=== PATIENT | female | born 1960 | race African-American/Black ===

== ENCOUNTER 2018-07-22 10:03 | Emergency (ER) | payer BC ==
[2018-07-22] MEDS ORDERED: ONDANSETRON 4 MG/2 ML VIAL ONE (11:25)
[2018-07-22] MEDS ORDERED: NA CHLORIDE 0.9% 1,000 ML ONE (11:25)
[2018-07-22 11:30] LABS: Absolute Lymphocytes (CBC) 0.7 K/uL (0.7-4.9); Absolute Monocytes 0.2 K/uL (0.1-1.3); Basophils % 0.3 % (0-1.3); Eosinophils % 0.7 % (0-4.4); Hematocrit 44.3 % (36.0-45.0); Lymphocytes % 10.6 % (15.3-44.8); MPV 7.5 fL (7.6-11.3); Monocytes % 2.8 % (3.3-12.3); RBC Red Blood Cell Count 5.07 M/uL (3.86-4.86)
[2018-07-22 11:58] LABS: ALT/SGPT 30 U/L (12-78); AST/SGOT 23 U/L (15-37); Albumin 3.8 g/dL (3.4-5.0); Alkaline Phosphatase 52 U/L (45-117); BUN Blood Urea Nitrogen 15 mg/dL (7-18); Bicarbonate 28 mmol/L (21-32); Bilirubin Direct 0.2 mg/dL (0-0.2); Bilirubin Total 0.8 mg/dL (0.2-1.0); Glucose Level 116 mg/dL (74-106); Lipase 121 U/L (73-393); Potassium 4.1 mmol/L (3.5-5.1); Protein, Total 7.3 g/dL (6.4-8.2); Sodium Level 144 mmol/L (136-145)
[2018-07-22 11:59] LABS: Urine Blood TRACE (NEG); Urine Glucose NEGATIVE (NEG); Urine Protein 1+ (NEG)
[2018-07-22 12:28] LABS: Blood Morphology Comment NOT SEEN (NOT SEEN); Platelet Estimate ADEQ; Urine White Blood Cell Casts OK
--- NOTE | 2018-07-22 12:51 | ER ---
Nurse's Notes [facility] Name: Karen Tsang Age: 58 yrs Sex: Female : 1960 Arrival Date: 07/22/2018 Time: 10:05 Bed 6 Private MD: Diagnosis: Generalized abdominal pain;Diarrhea, unspecified;Vomiting Presentation: 07/22 10:37 Presenting complaint: Patient states: upper abd pain since this morning, also vomited iw yellow bile. Transition of care: patient was not received from another setting of care. Onset of symptoms was July 22, 2018. Risk Assessment: Do you want to hurt yourself or someone else? Patient reports no desire to harm self or others. Initial Sepsis Screen: Does the patient meet any 2 criteria? No. Patient's initial sepsis screen is negative. Does the patient have a suspected source of infection? No. Patient's initial sepsis screen is negative. Care prior to arrival: None. 10:37 Method Of Arrival: Ambulatory iw 10:37 Acuity: WILFREDO 3 iw Historical: - Allergies: 10:38 No Known Allergies; iw - Home Meds: 10:38 None [Active]; iw - PMHx: 10:38 None; iw - PSHx: 10:38 Hysterectomy; Tubal ligation; Hernia repair; Febroid Removal; iw - Immunization history:: Adult Immunizations. - Ebola Screening: : Patient negative for fever greater than or equal to 101.5 degrees Fahrenheit, and additional compatible Ebola Virus Disease symptoms Patient denies exposure to infectious person Patient denies travel to an Ebola-affected area in the 21 days before illness onset No symptoms or risks identified at this time. - Social history:: Smoking status: . Screenin:15 Abuse screen: Denies threats or abuse. Denies injuries from another. Nutritional aj1 screening: No deficits noted. Tuberculosis screening: No symptoms or risk factors identified. 13:32 Fall Risk None identified. tw2 Assessment: 11:15 General: Appears in no apparent distress. comfortable, Behavior is calm, cooperative, aj1 appropriate for age. Pain: Complains of pain in right upper quadrant and left upper quadrant Pain does not radiate. Neuro: Level of Consciousness is awake, alert, obeys commands. Cardiovascular: Patient's skin is warm and dry. Respiratory: Airway is patent Respiratory effort is even, unlabored, Respiratory pattern is regular, symmetrical. GI: Abdomen is non-distended, Bowel sounds present X 4 quads. Abd is soft and non tender X 4 quads. Reports upper abdominal pain, nausea, vomiting. : No signs and/or symptoms were reported regarding the genitourinary system. EENT: No signs and/or symptoms were reported regarding the EENT system. Derm: No signs and/or symptoms reported regarding the dermatologic system. Skin is pink, warm \T\ dry. normal. Musculoskeletal: No signs and/or symptoms reported regarding the musculoskeletal system. Circulation, motion, and sensation intact. 12:15 Reassessment: Patient appears in no apparent distress at this time. No changes from aj1 previously documented assessment. Patient and/or family updated on plan of care and expected duration. Pain level reassessed. Patient is alert, oriented x 3, equal unlabored respirations, skin warm/dry/pink. 13:33 Reassessment: Patient appears in no apparent distress at this time. No changes from tw2 previously documented assessment. Patient and/or family updated on plan of care and expected duration. Pain level reassessed. Patient is alert, oriented x 3, equal unlabored respirations, skin warm/dry/pink. Vital Signs: 10:50 BP 123 / 83; Pulse 76; Resp 19; Temp 98.8(O); Pulse Ox 99% on R/A; jb1 12:15 BP 119 / 62; Pulse 76; Resp 21; Pulse Ox 97% on R/A; aj1 ED Course: 10:05 Patient arrived in ED. rg4 10:34 [facility] jm 10:34 Luisito Acevedo MD is Attending Physician. [facility] 10:37 Triage completed. iw 10:42 Laci Milligan, BRIDGER is Primary Nurse. sg 10:45 Arm band placed on. sg 11:00 Initial lab(s) drawn, by ED staff. Inserted saline lock: 22 gauge in left antecubital jb1 area, using aseptic technique. Blood collected. 11:05 Missed attempt(s): 20 gauge in right antecubital area. kj1 11:15 Patient has correct armband on for positive identification. Bed in low position. Call aj1 light in reach. Side rails up X 1. bus driver/monitor on. Pulse ox on. NIBP on. 11:15 No provider procedures requiring assistance completed. aj1 13:32 IV discontinued, intact, bleeding controlled, No redness/swelling at site. Pressure tw2 dressing applied. 13:36 Sveta Tsang, RN is Primary Nurse. iw Administered Medications: :26 Drug: NS 0.9% 1000 ml Route: IV; Rate: 1000 ml; Site: left antecubital; aj1 13:25 Follow up: Response: No adverse reaction; IV Status: Completed infusion; IV Intake: iw 1000ml : Drug: Zofran 4 mg Route: IVP; Site: left antecubital; aj1 13:20 Follow up: Response: No adverse reaction; Nausea is decreased iw Intake: 13:25 IV: 1000ml; Total: 1000ml. iw Outcome: 12:50 Discharge ordered by . helen 13:32 Discharged to home ambulatory. tw2 13:32 Condition: stable 13:32 Discharge instructions given to patient, Instructed on discharge instructions, follow up and referral plans. medication usage, Demonstrated understanding of instructions, follow-up care, medications, Prescriptions given X 1. 13:33 Patient left the ED. tw2 13:36 Patient left the ED. iw Signatures: Ronal Monsalve jb1 Sveta Tsang, RN RN aj1 Laci Milligan, RN RN Gene Mccallum PA PA jmm Williams, Irene, Alisson Guzman RN RN RN tw2 Tawana Ferguson4 Vivian Hernandez kj1
--- NOTE | 2018-07-22 12:51 | EDPHYS ---
Physician Documentation [facility] Name: Karen Tsang Age: 58 yrs Sex: Female : 1960 Arrival Date: 07/22/2018 Time: 10:05 Bed 6 Private MD: ED Physician Luisito Acevedo HPI: 07/22 10:35 This 58 yrs old Black Female presents to ER via Ambulatory with complaints of Abdominal jmm Pain. 10:35 The patient presents with abdominal pain in the epigastric area. Onset: The jmm symptoms/episode began/occurred this morning. Associated signs and symptoms: none. Pertinent positives: nausea and vomiting, diarrhea. The symptoms are described as achy. This is a 58 year old female with no chronic medical conditions that presents to the ED with complaints of vomiting and diarrhea beginning this morning. Patient states abdominal pain has now resolved. Denies recent abx use. Denies recent travel. . Historical: - Allergies: 10:38 No Known Allergies; iw - Home Meds: 10:38 None [Active]; iw - PMHx: 10:38 None; iw - PSHx: 10:38 Hysterectomy; Tubal ligation; Hernia repair; Febroid Removal; iw - Immunization history:: Adult Immunizations. - Ebola Screening: : Patient negative for fever greater than or equal to 101.5 degrees Fahrenheit, and additional compatible Ebola Virus Disease symptoms Patient denies exposure to infectious person Patient denies travel to an Ebola-affected area in the 21 days before illness onset No symptoms or risks identified at this time. - Social history:: Smoking status: . ROS: 10:35 Constitutional: Negative for fever, chills, and weight loss, Cardiovascular: Negative jmm for chest pain, palpitations, and edema, Respiratory: Negative for shortness of breath, cough, wheezing, and pleuritic chest pain. 10:35 Abdomen/GI: Positive for abdominal pain, nausea and vomiting, diarrhea. 10:35 All other systems are negative. Exam: 10:35 Constitutional: This is a well developed, well nourished patient who is awake, alert, jmm and in no acute distress. Head/Face: atraumatic. Eyes: EOMI, no conjunctival erythema appreciated ENT: Moist Mucus Membranes Neck: Trachea midline, Supple Chest/axilla: Normal chest wall appearance and motion. Cardiovascular: Regular rate and rhythm. No edema appreciated Respiratory: Normal respirations, no respiratory distress appreciated 10:35 Abdomen/GI: Inspection: abdomen appears normal, Bowel sounds: normal, Palpation: abdomen is soft and non-tender, in all quadrants. 10:35 Back: ROM is normal, CVA tenderness, is absent, is noted bilaterally. 10:35 Musculoskeletal/extremity: ROM: intact in all extremities. 10:35 Skin: Appearance: Color: normal in color. 10:35 Neuro: Orientation: is normal, Mentation: is normal, Memory: is normal. 10:35 Psych: Behavior/mood is pleasant, cooperative. Vital Signs: 10:50 BP 123 / 83; Pulse 76; Resp 19; Temp 98.8(O); Pulse Ox 99% on R/A; jb1 12:15 BP 119 / 62; Pulse 76; Resp 21; Pulse Ox 97% on R/A; aj1 MDM: 10:35 Patient medically screened. [facility] 12:50 Data reviewed: vital signs, nurses notes. Counseling: I had a detailed discussion with yudi the patient and/or guardian regarding: the historical points, exam findings, and any diagnostic results supporting the discharge/admit diagnosis, the need for outpatient follow up, to return to the emergency department if symptoms worsen or persist or if there are any questions or concerns that arise at home. 07/22 10:39 Order name: Basic Metabolic Panel; Complete Time: 12:08 [facility] 07/22 10:39 Order name: CBC with Diff; Complete Time: 12:31 [facility] 07/22 10:39 Order name: Creatinine for Radiology; Complete Time: 12:08 [facility] 07/22 10:39 Order name: Hepatic Function; Complete Time: 12:08 [facility] 07/22 10:39 Order name: Lipase; Complete Time: 12:08 [facility] 07/22 11:38 Order name: CBC Smear Scan; Complete Time: 12:31 [facility] 07/22 10:39 Order name: IV Saline Lock; Complete Time: 11: [facility] 07/22 10:39 Order name: Labs collected and sent; Complete Time: 11: [facility] 07/22 11:48 Order name: Urine Dipstick--Ancillary (enter results); Complete Time: 12:08 eb Administered Medications: 11:26 Drug: NS 0.9% 1000 ml Route: IV; Rate: 1000 ml; Site: left antecubital; aj1 13:25 Follow up: Response: No adverse reaction; IV Status: Completed infusion; IV Intake: iw 1000ml 11:26 Drug: Zofran 4 mg Route: IVP; Site: left antecubital; aj1 13:20 Follow up: Response: No adverse reaction; Nausea is decreased iw Disposition: 07/22/18 12:50 Discharged to Home. Impression: Generalized abdominal pain, Diarrhea, unspecified, Vomiting. - Condition is Stable. - Discharge Instructions: Food Choices to Help Relieve Diarrhea, Adult, Diarrhea, Adult, Nausea and Vomiting, Adult. - Prescriptions for Zofran ODT 4 mg Oral tablet,disintegrating - place 1 tablet by TRANSLINGUAL route every 4-6 hours; 20 tablet. - Medication Reconciliation Form, Thank You Letter, Antibiotic Education, Prescription Opioid Use, Work release form form. - Follow up: Private Physician; When: 2 - 3 days; Reason: Recheck today's complaints, Continuance of care, Re-evaluation by your physician. Addendum: 07/25/2018 08:23 Co-signature as Attending Physician, Luisito Acevedo MD I agree with the assessment and k dr plan of care. Signatures: Dispatcher [employer] EDSveta Enrique RN RN aj1 Luisito Acevedo MD MD [facility] Gene Louise PA PA [facility] Chanelle Temple, BRIDGER RN iw Alisson Forrest RN RN tw2 Corrections: (The following items were deleted from the chart) 07/22 13:33 12:50 07/22/2018 12:50 Discharged to Home. Impression: Generalized abdominal pain; tw2 Diarrhea, unspecified; Vomiting. Condition is Stable. Forms are Medication Reconciliation Form, Thank You Letter, Antibiotic Education, Prescription Opioid Use. Follow up: Private Physician; When: 2 - 3 days; Reason: Recheck today's complaints, Continuance of care, Re-evaluation by your physician. [facility] 13:36 13:33 07/22/2018 12:50 Discharged to Home. Impression: Generalized abdominal pain; iw Diarrhea, unspecified; Vomiting. Condition is Stable. Discharge Instructions: Food Choices to Help Relieve Diarrhea, Adult, Diarrhea, Adult, Nausea and Vomiting, Adult. Prescriptions for Zofran ODT 4 mg Oral tablet,disintegrating - place 1 tablet by TRANSLINGUAL route every 4-6 hours; 20 tablet. and Forms are Medication Reconciliation Form, Thank You Letter, Antibiotic Education, Prescription Opioid Use, Work release form. Follow up: Private Physician; When: 2 - 3 days; Reason: Recheck today's complaints, Continuance of care, Re-evaluation by your physician. tw2
== END 2018-07-22 13:36 | disposition home or self-care (01) ==
LOC: ER 10:03
DX: R19.7 Diarrhea, unspecified (principal); R11.10 Vomiting, unspecified
CPT/HCPCS: 36415; 80048; 80076; 81003; 83690; 85025; 96361; 96374; 99284; J2405; J7030

== ENCOUNTER 2019-10-01 10:07 | Emergency (ER) | payer BC ==
--- NOTE | 2019-10-01 10:37 | ER ---
Nurse's Notes [facility] Name: Karen Tsang Age: 59 yrs Sex: Female : 1960 Arrival Date: 10/01/2019 Time: 10:10 Bed 7 Private MD: Diagnosis: Pain in right shoulder;Radiculopathy, cervical region Presentation: 09/30 10:22 Chief complaint: Patient states: upper back pain that radiates down R shoulder and arm ss that began at 0200 this AM. Pt denies injury. Coronavirus screen: Proceed with normal triage. Patient denies a cough. Patient denies shortness of breath or difficulty breathing. Patient denies measured and/or subjective temperature greater than 100.4F prior to today's visit. Patient denies travel on a cruise ship or to a country the [facility] currently lists as an affected area. Patient denies contact with known and/or suspected case of COVID-19. Ebola Screen: Patient denies exposure to infectious person. Patient denies travel to an Ebola-affected area in the 21 days before illness onset. Initial Sepsis Screen: Does the patient meet any 2 criteria? No. Patient's initial sepsis screen is negative. Does the patient have a suspected source of infection? No. Patient's initial sepsis screen is negative. Risk Assessment: Do you want to hurt yourself or someone else? Patient reports no desire to harm self or others. Onset of symptoms was October 01, 2019 at 02:00. 10:22 Method Of Arrival: Ambulatory ss 10:22 Acuity: WILFREDO 3 ss Historical: - Allergies: 10:24 No Known Allergies; ss - Home Meds: 10:24 None [Active]; ss - PMHx: 10:24 None; ss - PSHx: 10:24 Hysterectomy; Hernia repair; Tubal ligation; fibroid removed; ss - Immunization history:: Adult Immunizations up to date. - Social history:: Smoking status: Patient denies any tobacco usage or history of. Screenin:25 Abuse screen: Denies threats or abuse. Denies injuries from another. Nutritional sv screening: No deficits noted. Tuberculosis screening: No symptoms or risk factors identified. Fall Risk None identified. Assessment: 10:30 General: Appears in no apparent distress. uncomfortable, well groomed, well developed, sv Behavior is cooperative, appropriate for age, restless. Pain: Complains of pain in right trapezius, right arm and right posterior aspect of neck Pain currently is 9 out of 10 on a pain scale. Pain began this morning Is continuous, Aggravated by increased activity, having her arm in a down position Noted to be grimacing, guarding. Neuro: Level of Consciousness is awake, alert, obeys commands, Oriented to person, place, time, situation, Moves all extremities. Full function Gait is steady. Respiratory: Airway is patent Respiratory effort is even, unlabored, Respiratory pattern is regular, symmetrical. Derm: Skin is intact, Skin is pink, warm \T\ dry. Musculoskeletal: Range of motion: intact in all extremities. 11:07 Reassessment: Patient appears in no apparent distress at this time. Patient and/or sv family updated on plan of care and expected duration. Pain level reassessed. Patient is alert, oriented x 3, equal unlabored respirations, skin warm/dry/pink. Patient states feeling better. Patient states symptoms have improved. Vital Signs: 10:22 BP 150 / 103; Pulse 70; Resp 16; Temp 97.0(TE); Pulse Ox 100% on R/A; Weight 52.62 kg; ss Height 5 ft. 1 in. (154.94 cm); Pain 9/10; 10:45 BP 142 / 88; Pulse 51; Resp 20; Pulse Ox 100% ; sv 10:22 Body Mass Index 21.92 (52.62 kg, 154.94 cm) ED Course: 10:10 Patient arrived in ED. fj1 10:23 Liset Scales FNP-C [facility]. snw 10:23 Garfield Tang MD is Attending Physician. snw 10:23 Triage completed. ss 10:24 Arm band placed on right wrist. ss 10:25 Nurse Practitioner and/or Physician Defensive Driving Instructor to see patient. sv 10:25 Patient has correct armband on for positive identification. Bed in low position. Call sv light in reach. Pulse ox on. NIBP on. Door closed. Head of bed elevated. 10:26 Jimena Palma, BRIDGER is Primary Nurse. sv 11:07 No provider procedures requiring assistance completed. Patient did not have IV access sv during this emergency room visit. Administered Medications: 10:44 Drug: Valium 5 mg Route: PO; sv 11:07 Follow up: Response: No adverse reaction ph 10:44 Drug: TORadol 30 mg Route: IM; Site: left deltoid; sv 11:06 Follow up: Response: No adverse reaction ph 10:45 Drug: [place] 5 mg-325 mg 1 tabs {Note: rass2.} Route: PO; sv 11:06 Follow up: Response: No adverse reaction; RASS: Drowsy (-1) ph Outcome: 10:36 Discharge ordered by MD. tiwari 11:07 Patient left the ED. ph 11:07 Discharged to home via wheelchair, with family. sv 11: Condition: stable 11:07 Condition: improved 11:07 Discharge instructions given to patient, Instructed on discharge instructions, follow up and referral plans. medication usage, Demonstrated understanding of instructions, follow-up care, medications, Prescriptions given X 2. Signatures: Jimena Palma, RN RN Liset Dalal, IRON P[employer]IC BULLET MAKER-C [employer] P[employer] BULLET [employer]KER-Csnw Kathleen Squires RN RN Janet Schwartz RN RN Ronnie Montes [facility]
--- NOTE | 2019-10-01 10:37 | EDPHYS ---
Physician Documentation [facility] Name: Karen Tsang Age: 59 yrs Sex: Female : 1960 Arrival Date: 10/01/2019 Time: 10:10 Bed 7 Private MD: ED Physician Garfield Tang HPI: 09/30 10:40 This 59 yrs old Black Female presents to ER via Ambulatory with complaints of Back Pain.snw 10:40 The patient presents with pain that is acute, with no known mechanism of injury. The snw symptoms are located in the right posterior neck and right arm pain. Onset: The symptoms/episode began/occurred suddenly, this morning. The pain radiates to the right arm. Associated signs and symptoms: Pertinent positives: none. The problem was sustained from unknown cause. Modifying factors: The patient symptoms are alleviated by otc pain patch. Severity of symptoms: At their worst the symptoms were severe, in the emergency department the symptoms have improved, mildly. The patient has not experienced similar symptoms in the past. The patient has not recently seen a physician, the patient's primary care provider is Dr. Pendleton. no chest pain, swelling, shortness of breath, nausea, trauma. Historical: - Allergies: 10:24 No Known Allergies; ss - Home Meds: 10:24 None [Active]; ss - PMHx: 10:24 None; ss - PSHx: 10:24 Hysterectomy; Hernia repair; Tubal ligation; fibroid removed; ss - Immunization history:: Adult Immunizations up to date. - Social history:: Smoking status: Patient denies any tobacco usage or history of. ROS: 10:38 Constitutional: Negative for fever, chills, and weight loss, Eyes: Negative for injury, snw pain, redness, and discharge, ENT: Negative for injury, pain, and discharge, Neck: Negative for injury, pain, and swelling, Cardiovascular: Negative for chest pain, palpitations, and edema, Respiratory: Negative for shortness of breath, cough, wheezing, and pleuritic chest pain, Abdomen/GI: Negative for abdominal pain, nausea, vomiting, diarrhea, and constipation, Back: Negative for injury and pain, : Negative for injury, bleeding, discharge, and swelling, Skin: Negative for injury, rash, and discoloration, Neuro: Negative for headache, weakness, numbness, tingling, and seizure, Psych: Negative for depression, anxiety, suicide ideation, homicidal ideation, and hallucinations. 10:38 MS/extremity: Positive for pain, of the right arm, back of neck and back of right arm. Exam: 10:37 Constitutional: This is a well developed, well nourished patient who is awake, alert, snw and in no acute distress. Head/Face: Normocephalic, atraumatic. Eyes: Pupils equal round and reactive to light, extra-ocular motions intact. Lids and lashes normal. Conjunctiva and sclera are non-icteric and not injected. Cornea within normal limits. Periorbital areas with no swelling, redness, or edema. ENT: Nares patent. No nasal discharge, no septal abnormalities noted. Tympanic membranes are normal and external auditory canals are clear. Oropharynx with no redness, swelling, or masses, exudates, or evidence of obstruction, uvula midline. Mucous membranes moist. Neck: Trachea midline, no thyromegaly or masses palpated, and no cervical lymphadenopathy. Supple, full range of motion without nuchal rigidity, or vertebral point tenderness. No Meningismus. Chest/axilla: Normal chest wall appearance and motion. Nontender with no deformity. No lesions are appreciated. Cardiovascular: Regular rate and rhythm with a normal S1 and S2. No gallops, murmurs, or rubs. Normal PMI, no JVD. No pulse deficits. Respiratory: Lungs have equal breath sounds bilaterally, clear to auscultation and percussion. No rales, rhonchi or wheezes noted. No increased work of breathing, no retractions or nasal flaring. Abdomen/GI: Soft, non-tender, with normal bowel sounds. No distension or tympany. No guarding or rebound. No evidence of tenderness throughout. Back: No spinal tenderness. No costovertebral tenderness. Full range of motion. Skin: Warm, dry with normal turgor. Normal color with no rashes, no lesions, and no evidence of cellulitis. Neuro: Awake and alert, GCS 15, oriented to person, place, time, and situation. Cranial nerves II-XII grossly intact. Motor strength 5/5 in all extremities. Sensory grossly intact. Cerebellar exam normal. Normal gait. Psych: Awake, alert, with orientation to person, place and time. Behavior, mood, and affect are within normal limits. 10:37 Musculoskeletal/extremity: Extremities: right shoulder/trapezius pain, ROM: no acute changes, limited passive range of motion due to pain, in the right arm, Circulation is intact in all extremities. Sensation intact. Joints: All joints appear normal with full range of motion. 10:37 Neuro: Exam negative for acute changes. Vital Signs: 10:22 BP 150 / 103; Pulse 70; Resp 16; Temp 97.0(TE); Pulse Ox 100% on R/A; Weight 52.62 kg; ss Height 5 ft. 1 in. (154.94 cm); Pain 9/10; 10:45 BP 142 / 88; Pulse 51; Resp 20; Pulse Ox 100% ; sv 10:22 Body Mass Index 21.92 (52.62 kg, 154.94 cm) ss MDM: 10:24 Patient medically screened. snw 10:39 Data reviewed: vital signs, nurses notes. Data interpreted: Pulse oximetry: on room air snw is 100 %. Interpretation: normal. Counseling: I had a detailed discussion with the patient and/or guardian regarding: the historical points, exam findings, and any diagnostic results supporting the discharge/admit diagnosis, the presence of at least one elevated blood pressure reading (>120/80) during this emergency department visit, lab results, radiology results, the need for outpatient follow up, to return to the emergency department if symptoms worsen or persist or if there are any questions or concerns that arise at home. Special discussion: I have referred the patient to see his PCP for further evaluation of high blood pressure. Based on the history and exam findings, there is no indication for further emergent testing or inpatient evaluation. I discussed with the patient/guardian the need to see the orthopedic surgeon for further evaluation of the symptoms. I discussed with the patient/guardian the need to see the primary care provider for further evaluation of the symptoms. Administered Medications: 10:44 Drug: Valium 5 mg Route: PO; sv 11:07 Follow up: Response: No adverse reaction ph 10:44 Drug: TORadol 30 mg Route: IM; Site: left deltoid; sv 11:06 Follow up: Response: No adverse reaction ph 10:45 Drug: [place] 5 mg-325 mg 1 tabs {Note: rass2.} Route: PO; 11:06 Follow up: Response: No adverse reaction; RASS: Drowsy (-1) ph Disposition: 13:17 Co-signature as Attending Physician, Garfield Tang MD. ma2 Disposition: 10/01/19 10:36 Discharged to Home. Impression: Pain in right shoulder, Radiculopathy, cervical region. - Condition is Stable. - Discharge Instructions: Joint Pain, Cervical Radiculopathy, Shoulder Pain, Cryotherapy, [id number], Shoulder Range of Motion Exercises, Heat Therapy. - Prescriptions for Diclofenac Sodium 75 mg Oral Tablet Sustained Release - take 1 tablet by ORAL route 2 times per day; 30 tablet. orphenadrine citrate 100 mg Oral Tablet Sustained Release - take 1 tablet by ORAL route 2 times per day As needed; 20 tablet. - Work release form, Medication Reconciliation Form, Thank You Letter, Antibiotic Education, Prescription Opioid Use form. - Follow up: Emergency Department; When: As needed; Reason: Worsening of condition. Follow up: Private Physician; When: 2 - 3 days; Reason: Recheck today's complaints, Continuance of care, Re-evaluation by your physician. Signatures: Jimena Palma RN RN sv Therrien, Shelly, MILLWRIGHT SUPERVISOR-C MILLWRIGHT SUPERVISOR-Csnw Kathleen Squires RN RN ss Hall, Patricia, RN RN Garfield Tang MD MD ma2 Corrections: (The following items were deleted from the chart) 10:40 10:36 10/01/2019 10:36 Discharged to Home. Impression: Pain in right shoulder. snw Condition is Stable. Forms are Medication Reconciliation Form, Thank You Letter, Antibiotic Education, Prescription Opioid Use. Follow up: Emergency Department; When: As needed; Reason: Worsening of condition. Follow up: Private Physician; When: 2 - 3 days; Reason: Recheck today's complaints, Continuance of care, Re-evaluation by your physician. snw 11:07 10:40 10/01/2019 10:36 Discharged to Home. Impression: Pain in right shoulder; ph Radiculopathy, cervical region. Condition is Stable. Discharge Instructions: Joint Pain, Shoulder Pain, Cryotherapy, [id number], Shoulder Range of Motion Exercises, Heat Therapy, Cervical Radiculopathy. Prescriptions for Diclofenac Sodium 75 mg Oral Tablet Sustained Release - take 1 tablet by ORAL route 2 times per day; 30 tablet, orphenadrine citrate 100 mg Oral Tablet Sustained Release - take 1 tablet by ORAL route 2 times per day As needed; 20 tablet. and Forms are Medication Reconciliation Form, Thank You Letter, Antibiotic Education, Prescription Opioid Use, Work release form. Follow up: Emergency Department; When: As needed; Reason: Worsening of condition. Follow up: Private Physician; When: 2 - 3 days; Reason: Recheck today's complaints, Continuance of care, Re-evaluation by your physician. w
[2019-10-01] MEDS ORDERED: HYDROCODONE/APAP 5/325 MG TAB ONE (10:45)
[2019-10-01] MEDS ORDERED: DIAZEPAM 5 MG TABLET ONE (10:45)
[2019-10-01] MEDS ORDERED: KETOROLAC 30 MG/ML INJ ONE (10:45)
[2019-10-01 11:27] VITALS: TEMP 97; O2SAT 100
[2019-10-01 11:28] VITALS: BP 142/88
== END 2019-10-01 11:07 | disposition home or self-care (01) ==
LOC: ER 10:07
DX: M54.12 Radiculopathy, cervical region (principal)
CPT/HCPCS: 96372; 99283

== ENCOUNTER 2019-10-02 02:08 | Emergency (ER) | payer BC ==
[2019-10-02] MEDS ORDERED: NA CHLORIDE 0.9% 1,000 ML ONE (02:59)
[2019-10-02] MEDS ORDERED: dexAMETHasone 10 MG/ML VIAL ONE (02:59)
[2019-10-02] MEDS ORDERED: KETOROLAC 30 MG/ML INJ ONE (02:59)
[2019-10-02 03:31] LABS: Absolute Lymphocytes (CBC) 1.2 K/uL (0.7-4.9); Basophils % 0.5 % (0-1.3); Hematocrit 42.6 % (36.0-45.0); Lymphocytes % 20.6 % (15.3-44.8); MPV 8.2 fL (7.6-11.3); RBC Red Blood Cell Count 4.92 M/uL (3.86-4.86)
--- NOTE | 2019-10-02 04:42 | EDPHYS ---
Physician Documentation [facility] Name: Karen Tsang Age: 59 yrs Sex: Female : 1960 Arrival Date: 10/02/2019 Time: 02:10 Bed 14 Private MD: Darion Kaur HPI: 10/01 02:44 This 59 yrs old Black Female presents to ER via Ambulatory with complaints of Shoulder roque Pain. 02:44 The patient or guardian complains of decreased range of motion, pain, that is acute. roque right shoulder, right trapezius, right sternocleidomastoid and right clavicle. Historical: - Allergies: 02:11 No Known Allergies; sg - Home Meds: 02:13 None [Active]; sg - PMHx: 02:13 None; sg - PSHx: 02:11 Hysterectomy; Hernia repair; Tubal ligation; fibroid removed; sg - Immunization history:: Adult Immunizations up to date. - Social history:: Smoking status: Patient denies any tobacco usage or history of. - Family history:: not pertinent. ROS: 02:50 Constitutional: Negative for fever, chills, and weight loss, Eyes: Negative for injury, roque pain, redness, and discharge, Neck: Negative for injury, pain, and swelling, Cardiovascular: Negative for chest pain, palpitations, and edema, Respiratory: Negative for shortness of breath, cough, wheezing, and pleuritic chest pain, Abdomen/GI: Negative for abdominal pain, nausea, vomiting, diarrhea, and constipation, : Negative for injury, bleeding, discharge, and swelling, MS/Extremity: Negative for injury and deformity, Skin: Negative for injury, rash, and discoloration, Neuro: Negative for headache, weakness, numbness, tingling, and seizure, Psych: Negative for depression, anxiety, suicide ideation, homicidal ideation, and hallucinations, Allergy/Immunology: Negative for hives, rash, and allergies, Endocrine: Negative for neck swelling, polydipsia, polyuria, polyphagia, and marked weight changes, Hematologic/Lymphatic: Negative for swollen nodes, abnormal bleeding, and unusual bruising. 02:50 ENT: Positive for 02:50 Neck: Positive for pain with movement, pain at rest. Exam: 02:50 Constitutional: This is a well developed, well nourished patient who is awake, alert, roque and in no acute distress. Head/Face: Normocephalic, atraumatic. Eyes: Pupils equal round and reactive to light, extra-ocular motions intact. Lids and lashes normal. Conjunctiva and sclera are non-icteric and not injected. Cornea within normal limits. Periorbital areas with no swelling, redness, or edema. ENT: Nares patent. No nasal discharge, no septal abnormalities noted. Tympanic membranes are normal and external auditory canals are clear. Oropharynx with no redness, swelling, or masses, exudates, or evidence of obstruction, uvula midline. Mucous membranes moist. Chest/axilla: Normal chest wall appearance and motion. Nontender with no deformity. No lesions are appreciated. Cardiovascular: Regular rate and rhythm with a normal S1 and S2. No gallops, murmurs, or rubs. Normal PMI, no JVD. No pulse deficits. Respiratory: Lungs have equal breath sounds bilaterally, clear to auscultation and percussion. No rales, rhonchi or wheezes noted. No increased work of breathing, no retractions or nasal flaring. Abdomen/GI: Soft, non-tender, with normal bowel sounds. No distension or tympany. No guarding or rebound. No evidence of tenderness throughout. Back: No spinal tenderness. No costovertebral tenderness. Full range of motion. Female : Normal external genitalia. Skin: Warm, dry with normal turgor. Normal color with no rashes, no lesions, and no evidence of cellulitis. Neuro: Awake and alert, GCS 15, oriented to person, place, time, and situation. Cranial nerves II-XII grossly intact. Motor strength 5/5 in all extremities. Sensory grossly intact. Cerebellar exam normal. Normal gait. Psych: Awake, alert, with orientation to person, place and time. Behavior, mood, and affect are within normal limits. 02:50 Neck: External neck: tenderness, ROM/movement: limited range of motion, that is moderate. 02:50 Musculoskeletal/extremity: Extremities: decreased ROM, pain, ROM: limited active range of motion due to pain, limited passive range of motion due to pain, Circulation is intact in all extremities. Sensation intact. Compartment Syndrome exam of affected extremity: is normal. DVT Exam: no swelling, no tenderness, negative Homans' sign noted on exam, no appreciated bluish discoloration, no erythema, no increased warmth, pain, that is moderate, of the anterior aspect of right shoulder, right bicep, right antecubital area, dorsal aspect of right forearm, posterior aspect of right shoulder and right tricep. 02:55 Skin: no rash present. [facility] 05:13 ECG was reviewed by the Attending Physician. [facility] Vital Signs: 02:10 BP 150 / 108; Pulse 88; Resp 18; Temp 97.6; Pulse Ox 100% on R/A; sg 02:19 Weight 52.62 kg; Height 5 ft. 1 in. (154.94 cm) (R); ch2 02:19 BP 138 / 96; Resp 16; Temp 98.6(O); ch2 05:27 BP 123 / 80; Pulse 54; Resp 18; Pulse Ox 100% on R/A; Pain 10/10; ch2 05:54 Pain 6/10; ch2 02:19 Body Mass Index 21.92 (52.62 kg, 154.94 cm) ch2 MDM: 02:13 Patient medically screened. [facility] 02:53 Differential diagnosis: arthritis, Cervical Disc Herniation DJD, tendonitis. Data [facility] reviewed: vital signs, nurses notes, lab test result(s), radiologic studies, plain films. Data interpreted: youth nutritional monitor: rate is 88 beats/min, Pulse oximetry: on room air is 100 %. Test interpretation: by ED physician or midlevel provider: plain radiologic studies. Counseling: I had a detailed discussion with the patient and/or guardian regarding: the historical points, exam findings, and any diagnostic results supporting the discharge/admit diagnosis, lab results, radiology results, the need for outpatient follow up, for definitive care, a neurologist. Medication response: Toradol partially relieved the patient's pain. 02:54 ED course: no cp, pain with rom of arm, into trap and paraspinous muscles. [facility] 04:42 ED course: pt explained results, improved and will follow up. [facility] 10/01 02:43 Order name: CBC with Diff; Complete Time: 04:41 roque 10/01 02:43 Order name: Chem 7; Complete Time: 04:41 [facility] 10/01 02:43 Order name: CT C Spine [facility] 10/01 02:43 Order name: Shoulder Right (2 View) XRAY [facility] 10/01 04:41 Order name: Sling; Complete Time: 05:26 [facility] 10/01 04:50 Order name: EKG; Complete Time: 04:51 [facility] 10/01 04:50 Order name: EKG - Nurse/Tech; Complete Time: 05:25 [facility] EC:13 Rate is 56 beats/min. Rhythm is regular. QRS [place] is Normal. AR interval is normal. QRS roque interval is normal. QT interval is normal. No Q waves. T waves are Normal. No ST changes noted. Clinical impression: Sinus bradycardia and No evidence of ischemia. Interpreted by me. Reviewed by me. Administered Medications: 03:18 Drug: NS 0.9% 1000 ml Route: IV; Rate: 1 bolus; Site: right antecubital; ch2 05:26 Follow up: IV Status: Completed infusion; IV Intake: 1000ml ch2 03:18 Drug: TORadol 30 mg Route: IVP; Site: right antecubital; ch2 03:55 Follow up: Response: No adverse reaction; No change in condition; Pain is unchanged, ch2 physician notified 03:18 Drug: Decadron - Dexamethasone 10 mg Route: IVP; Site: right antecubital; ch2 03:55 Follow up: Response: No adverse reaction ch2 05:25 Drug: morphine 4 mg Route: IVP; Site: right antecubital; ch2 05:54 Follow up: Pain 6/10 Adult; Response: No adverse reaction; Pain is decreased ch2 05:25 Drug: Zofran (Ondansetron) 4 mg Route: IVP; Site: right antecubital; ch2 05:53 Follow up: Response: No adverse reaction; Nausea is decreased ch2 05:53 Drug: Valium 5 mg Route: PO; ch2 Disposition: 10/02/19 04:42 Discharged to Home. Impression: Pain in right shoulder, Radiculopathy, cervical region. - Condition is Stable. - Discharge Instructions: Cervical Radiculopathy, Musculoskeletal Pain, Shoulder Pain, Cryotherapy, [id number], Shoulder Pain, [id number], Cryotherapy, Cervical Radiculopathy, [id number], Radicular Pain. - Prescriptions for Tylenol- Codeine #3 300-30 mg Oral Tablet - take 2 tablets by ORAL route every 6 hours As needed; 24 tablet. Valium 2 mg Oral Tablet - take 1 tablet by ORAL route every 8 hours As needed; 20 tablet. Medrol (Lars) 4 mg Oral Tablets, Dose Pack - take 1 tablet by ORAL route as directed - follow package instructions; 1 packet. Diclofenac Sodium 75 mg Oral Tablet, Delayed Release (E.C.) - take 1 tablet by ORAL route 2 times per day; 20 tablet. - Work release form, Medication Reconciliation Form, Thank You Letter, Antibiotic Education, Prescription Opioid Use form. - Follow up: Private Physician; When: 2 - 3 days; Reason: Recheck today's complaints, Continuance of care, Re-evaluation by your physician. Follow up: Geovani Kirkland; When: 2 - 3 days; Reason: Recheck today's complaints, Re-evaluation by your physician. - Problem is new. - Symptoms have improved. Signatures: Dispatcher [employer] EDLaci Hendrickson RN RN Darion Rodriguez MD MD cha Hanna, Candace, RN RN ch2 Corrections: (The following items were deleted from the chart) 06:22 04:42 10/02/2019 04:42 Discharged to Home. Impression: Pain in right shoulder; ch2 Radiculopathy, cervical region. Condition is Stable. Discharge Instructions: Cervical Radiculopathy, Musculoskeletal Pain, Shoulder Pain, Cryotherapy, [id number], Shoulder Pain, Norj-as-Vnde, Cryotherapy, Cervical Radiculopathy, [id number], Radicular Pain. Prescriptions for Tylenol-Codeine #3 300-30 mg Oral Tablet - take 2 tablets by ORAL route every 6 hours As needed; 24 tablet, Valium 2 mg Oral Tablet - take 1 tablet by ORAL route every 8 hours As needed; 20 tablet, Medrol (Lars) 4 mg Oral Tablets, Dose Pack - take 1 tablet by ORAL route as directed - follow package instructions; 1 packet, Diclofenac Sodium 75 mg Oral Tablet, Delayed Release (E.C.) - take 1 tablet by ORAL route 2 times per day; 20 tablet. and Forms are Medication Reconciliation Form, Thank You Letter, Antibiotic Education, Prescription Opioid Use. Follow up: Private Physician; When: 2 - 3 days; Reason: Recheck today's complaints, Continuance of care, Re-evaluation by your physician. Follow up: Geovani Kirkland; When: 2 - 3 days; Reason: Recheck today's complaints, Re-evaluation by your physician. Problem is new. Symptoms have improved. roque
--- NOTE | 2019-10-02 04:42 | ER ---
Nurse's Notes [facility] Name: Karen Tsang Age: 59 yrs Sex: Female : 1960 Arrival Date: 10/02/2019 Time: 02:10 Bed 14 Private MD: Diagnosis: Pain in right shoulder;Radiculopathy, cervical region Presentation: 10/01 02:10 Chief complaint: Patient states: Right Shoulder pain, reports being seen and treated sg for this complaint this morning but having increased in pain, pt denies new trauma or injury at this time, reports pain is a 10/10. Coronavirus screen: Proceed with normal triage. Ebola Screen: Patient negative for fever greater than or equal to 101.5 degrees Fahrenheit, and additional compatible Ebola Virus Disease symptoms Patient denies exposure to infectious person. Patient denies travel to an Ebola-affected area in the 21 days before illness onset. No symptoms or risks identified at this time. Initial Sepsis Screen: Does the patient meet any 2 criteria? No. Patient's initial sepsis screen is negative. Does the patient have a suspected source of infection? No. Patient's initial sepsis screen is negative. Risk Assessment: Do you want to hurt yourself or someone else? Patient reports no desire to harm self or others. Onset of symptoms was October 02, 2019. Care prior to arrival: None. Transition of care: patient was not received from another setting of care. 02:10 Method Of Arrival: Ambulatory sg 02:10 Acuity: WILFREDO 4 sg Historical: - Allergies: 02:11 No Known Allergies; sg - Home Meds: 02:13 None [Active]; sg - PMHx: 02:13 None; sg - PSHx: 02:11 Hysterectomy; Hernia repair; Tubal ligation; fibroid removed; sg - Immunization history:: Adult Immunizations up to date. - Social history:: Smoking status: Patient denies any tobacco usage or history of. - Family history:: not pertinent. Screenin:26 Abuse screen: Denies threats or abuse. Denies injuries from another. Nutritional ch2 screening: No deficits noted. Tuberculosis screening: No symptoms or risk factors identified. Fall Risk None identified. No fall in past 12 months (0 pts). No secondary diagnosis (0 pts). No IV (0 pts). Ambulatory Aid- None/Bed Rest/Nurse Assist (0 pts). Gait- Normal/Bed Rest/Wheelchair (0 pts) Mental Status- Oriented to own ability (0 pts). Assessment: 02:20 General: Appears in no apparent distress. uncomfortable, slender, well groomed, well ch2 developed, well nourished, Behavior is calm, cooperative, appropriate for age, Reports. Pain: Complains of pain in right scapular area Pain currently is 10 out of 10 on a pain scale. Pain began 1 day ago. Is continuous, Alleviated by nothing. Noted to be guarding. Neuro: No deficits noted. Level of Consciousness is awake, alert, obeys commands, Oriented to person, place, time, situation, Appropriate for age Veneer Matcher are equal bilaterally Moves all extremities. Full function Gait is steady, Speech is normal, Facial symmetry appears normal, Pupils are PERRLA. Cardiovascular: No deficits noted. Pulses are palpable in right radial artery and left radial artery pt denies numbness/tingling to upper extremities Rhythm is regular. Respiratory: No deficits noted. Airway is patent Respiratory effort is even, unlabored, Respiratory pattern is regular, symmetrical. GI: No deficits noted. No signs and/or symptoms were reported involving the gastrointestinal system. : No deficits noted. No signs and/or symptoms were reported regarding the genitourinary system. EENT: No deficits noted. No signs and/or symptoms were reported regarding the EENT system. Derm: No deficits noted. No signs and/or symptoms reported regarding the dermatologic system. Skin is intact, is healthy with good turgor, Skin is Skin is normal. Musculoskeletal: No deficits noted. No signs and/or symptoms reported regarding the musculoskeletal system. Circulation, motion, and sensation intact. Capillary refill < 3 seconds, in bilateral fingers. Range of motion: intact in all extremities. 03:54 Reassessment: Patient appears in no apparent distress at this time. No changes from ch2 previously documented assessment. Patient and/or family updated on plan of care and expected duration. Pain level reassessed. Patient is alert, oriented x 3, equal unlabored respirations, skin warm/dry/pink. Patient states symptoms have not improved. Pain: Pain currently is 10 out of 10 on a pain scale. 05:28 Reassessment: Patient appears in no apparent distress at this time. No changes from ch2 previously documented assessment. Patient and/or family updated on plan of care and expected duration. Pain level reassessed. Patient is alert, oriented x 3, equal unlabored respirations, skin warm/dry/pink. 05:55 Reassessment: Patient appears in no apparent distress at this time. No changes from ch2 previously documented assessment. Patient and/or family updated on plan of care and expected duration. Pain level reassessed. Patient is alert, oriented x 3, equal unlabored respirations, skin warm/dry/pink. Patient states feeling better. Patient states symptoms have improved. Vital Signs: 02:10 BP 150 / 108; Pulse 88; Resp 18; Temp 97.6; Pulse Ox 100% on R/A; sg 02:19 Weight 52.62 kg; Height 5 ft. 1 in. (154.94 cm) (R); ch2 02:19 BP 138 / 96; Resp 16; Temp 98.6(O); ch2 05:27 BP 123 / 80; Pulse 54; Resp 18; Pulse Ox 100% on R/A; Pain 10/10; ch2 05:54 Pain 6/10; ch2 02:19 Body Mass Index 21.92 (52.62 kg, 154.94 cm) ch2 ED Course: 02:10 Patient arrived in ED. sg 02:11 Triage completed. sg 02:11 Arm band placed on. sg 02:13 Darion John MD is Attending Physician. roque 02:27 Patient has correct armband on for positive identification. Bed in low position. NIBP ch2 on. Door closed. Noise minimized. 02:44 Initial lab(s) drawn, by ED staff, sent to lab. ch2 03:00 Shoulder Right (2 View) XRAY In Process Unspecified. EDMS 03:08 Missed attempt(s): 20 gauge in left antecubital area. ch2 03:19 Call light in reach. Door closed. Noise minimized. Warm blanket given. Head of bed ch2 lowered. 03:32 Inserted saline lock: 20 gauge in right antecubital area, using aseptic technique. ch2 03:48 CT C Spine In Process Unspecified. EDMS 04:42 Geovani Kirkland MD is Referral Physician. roque 05:29 No provider procedures requiring assistance completed. ch2 05:55 IV discontinued, intact, bleeding controlled, No redness/swelling at site. Pressure ch2 dressing applied. Administered Medications: 03:18 Drug: NS 0.9% 1000 ml Route: IV; Rate: 1 bolus; Site: right antecubital; ch2 05:26 Follow up: IV Status: Completed infusion; IV Intake: 1000ml ch2 03:18 Drug: TORadol 30 mg Route: IVP; Site: right antecubital; ch2 03:55 Follow up: Response: No adverse reaction; No change in condition; Pain is unchanged, ch2 physician notified 03:18 Drug: Decadron - Dexamethasone 10 mg Route: IVP; Site: right antecubital; ch2 03:55 Follow up: Response: No adverse reaction ch2 05:25 Drug: morphine 4 mg Route: IVP; Site: right antecubital; ch2 05:54 Follow up: Pain 6/10 Adult; Response: No adverse reaction; Pain is decreased ch2 05:25 Drug: Zofran (Ondansetron) 4 mg Route: IVP; Site: right antecubital; ch2 05:53 Follow up: Response: No adverse reaction; Nausea is decreased ch2 05:53 Drug: Valium 5 mg Route: PO; ch2 Intake: 05:26 IV: 1000ml; Total: 1000ml. ch2 Outcome: 04:42 Discharge ordered by MD. nevarez 05:55 Condition: improved ch2 05:55 Discharge instructions given to patient, Instructed on discharge instructions, follow up and referral plans. medication usage, Demonstrated understanding of instructions, follow-up care, medications, Prescriptions given X 4. 06:22 Patient left the ED. ch2 Signatures: Dispatcher [employer] EDMS Laci Milligan RN RN sg Anderson, Corey, MD MD cha Hanna, Candace, RN RN ch2 Corrections: (The following items were deleted from the chart) 03:33 03:32 Initial lab(s) drawn, by ED staff, sent to lab. ch2 ch2
[2019-10-02] MEDS ORDERED: MORPHINE 4 MG/ML SYR ONE (05:06)
[2019-10-02] MEDS ORDERED: ONDANSETRON 4 MG/2 ML VIAL ONE (05:06)
[2019-10-02] MEDS ORDERED: DIAZEPAM 5 MG TABLET ONE (05:42)
[2019-10-02 06:29] VITALS: O2SAT 100
[2019-10-02 06:30] VITALS: TEMP 98.6
[2019-10-02 06:31] VITALS: BP 123/80
--- NOTE | 2019-10-02 07:51 | RAD REPORT ---
EXAM DESCRIPTION: RAD - Shoulder Right 2 View - 10/02/2019 3:00 am CLINICAL HISTORY: Right shoulder pain FINDINGS: No fracture or dislocation is seen. Minimal narrowing AC joint
--- NOTE | 2019-10-02 09:40 | RAD REPORT ---
EXAM DESCRIPTION: CT - C Spine Wo Con - 10/02/2019 6:33 am CLINICAL HISTORY: PAIN , right shoulder pain COMPARISON: None. TECHNIQUE: Cervical Spine axial images acquired without contrast. Coronal and sagittal reformats cre ated. Exam performed according to departmental dose-optimization program which includes automated exp osure control, adjustment of mA and/or kV according to patient size, and/or use of iterative reconstr uction technique. FINDINGS: No fracture or subluxation. Cervical vertebral bodies show normal height and alignment. Small, anterolateral, endplate osteophytes throughout cervical spine. Cervical discs unremarkable. Mild, bilateral, uncovertebral degenerative joint changes throughout cervical spine. C2/C3: No significant central canal or neuroforaminal stenosis. C3/C4: Left-sided osteophytes causing mild left neuroforaminal stenosis. C4/C5: No significant central canal or neuroforaminal stenosis. C5/C6: Left-sided osteophytes causing mild left neuroforaminal stenosis. C6/C7: Left-sided osteophytes causing mild/moderate left neuroforaminal stenosis. C7/T1: No significant central canal or neuroforaminal stenosis. No paraspinal hematoma. IMPRESSION: Mild cervical spine degenerative disease. Electronically signed by: Oh Monreal MD 10/02/2019 4:02 AM CDT Due to temporary technical issues with the PACS/Fluency reporting system, reports are being signed by the in house radiologist without review as a courtesy to ensure prompt reporting. The interpreting r adiologist is fully responsible for the content of the report.
== END 2019-10-02 06:22 | disposition home or self-care (01) ==
LOC: ER 02:08
DX: M54.12 Radiculopathy, cervical region (principal)
CPT/HCPCS: 96361; 93005 ×2; 85025; 80048; 36415; 72125; 73030; 96375; 96374; 99284; J1100; J7030; J2405